=== PATIENT | female | born 1945 | race Caucasian/White ===

== ENCOUNTER → 2023-10-08 07:19 | Outpatient (REF) | payer MEDICARE, SELFPAY | LOC: EMG 07:19 | PROVIDERS: ATTENDING PHYSICIAN Orthopaedic Surgery; FAMILY PHYSICIAN Internal Medicine | DX: Z96.612 Presence of left artificial shoulder joint (principal); G56.12 Other lesions of median nerve, left upper limb; R20.0 Anesthesia of skin | CPT/HCPCS: 95886; 95909 ==

== ENCOUNTER → 2024-09-12 10:40 | Outpatient (REF) | payer MEDICARE, SELFPAY | LOC: WDC 10:40 | PROVIDERS: ATTENDING PHYSICIAN Internal Medicine | DX: N63.10 Unspecified lump in the right breast, unspecified quadrant (principal); N63.20 Unspecified lump in the left breast, unspecified quadrant; N63.13 Unspecified lump in the right breast, lower outer quadrant; N63.24 Unspecified lump in the left breast, lower inner quadrant | CPT/HCPCS: 76642; 77062; 77066 ==

== ENCOUNTER 2024-09-14 06:00 | Day surgery (SDC) | payer MEDICARE, SELFPAY ==
[2024-09-05 13:00] VITALS: BMI 23.3
--- NOTE | 2024-09-05 13:44 | HPS.HSE ---
Family Physician
-
Family Physician: Katie Champion
Chief Complaint
-
Paroxysmal atrial fibrillation.
History of Present Illness
The patient is an 78 year old female presenting today for paroxysmal atrial fibrillation. She goes by Betty, her middle name. Betty reports exertional fatigue and lethargy associated with this diagnosis. She previously underwent a
cardioversion and pulmonary vein isolation at [facility] in 2020. She is on current pharmacological therapy with Amiodarone and Metoprolol Succinate. She reports she has been compliant with Eliquis for oral anticoagulation. She notes that
her current symptoms associated with her arrhythmia greatly interfere with her activities of daily living and overall impact her quality of life. She also hopes to come off Amiodarone one day given its known toxicities with lifelong use. She is
interested in pursuing a recurrent pulmonary vein isolation for further arrhythmia management. She denies complaints today such as chest pain, shortness of breath at rest, palpitations, nausea, vomiting, diarrhea, dizziness, cough, sore throat, or
fever.
Medical History
Past Medical History
Past Medical History: Reports Other
Additional Past Medical History:
1. Paroxysmal atrial fibrillation, status post cardioversion and pulmonary vein isolation 2020; pharmacological therapy with Amiodarone and Metoprolol Succinate, oral anticoagulation with Eliquis.
2. Paroxysmal atrial flutter, improved after cardioversion 2020.
3. Symptomatic bradycardia and sick sinus syndrome, status post Medtronic pacemaker 08/2019.
4. Hypertension.
5. Hyperlipidemia.
6. Coronary artery disease, status post PCI with stent 2007.
7. Bilateral carotid atherosclerosis without significant stenosis.
8. Obstructive sleep apnea, non-compliant with device.
9. Chronic dyspnea on exertion.
10. Mild renal insufficiency per pre-operative labs.
11. GERD.
12. Esophageal dysmotility with spasms and mild dysphagia.
13. Colon polyps.
14. Diverticulosis.
15. Hemorrhoids.
16. Chronic constipation.
17. Peripheral neuropathy.
18. Spinal stenosis.
19. Osteoarthritis, status post right total shoulder arthroplasty, 2018, right total knee arthroplasty, 2021, and left total shoulder arthroplasty 2022.
20. Ambulatory dysfunction with history of falls.
21. Rosacea.
22. Stress incontinence.
23. Lyme disease.
24. Osteopenia.
25. Insomnia.
26. Hearing impairment bilaterally.
27. Mild leukopenia.
28. Chronic thrombocytopenia.
29. Mildly elevated transaminases.
30. Mild hypermagnesemia with prior hypomagnesemia.
31. Remote history of tobacco abuse.
Past Surgical History: Reports Other
Additional Past Surgical History:
1. Pulmonary vein isolation.
2. Cardioversion.
3. PCI with stent.
4. Cardiac cath.
5. Medtronic pacemaker insertion.
6. Right total shoulder arthroplasty.
7. Left total shoulder arthroplasty.
8. Right total knee arthroplasty.
9. Left upper extremity nerve decompression.
10. Breast reduction.
11. Abdominoplasty.
12. Cosmetic surgery.
13. Bilateral cataract extraction.
14. Multiple colonoscopies.
15. Multiple endoscopies.
Social History
Tobacco: Former Smoker (She was an 'infrequent' tobacco user approximately 30 years ago.)
Alcohol: Other (Rare.)
Personal:
Living: Other (She lives in a 2 story home with her . )
Family History
Family History: Not pertinent
Allergies / Home Medications
Allergy/Medication List:
Home medications:
1. Tylenol 650 mg p.o. every 6 hours as needed.
3. Lansoprazole 15 mg p.o. daily.
4. Semaglutide 1.7 mg subcu on Sundays.
5. Lunesta 2-3 mg p.o. at bedtime.
6. Colace 100 mg p.o. daily.
7. Metoprolol Succinate 100 mg p.o. twice a day.
8. Repatha 140 mg subcutaneous every 2 weeks.
9. Ibuprofen 200 mg p.o. daily as needed.
10. Fiber 1 gummy p.o. twice a day.
11. Cyanocobalamin 2500 mcg sublingual weekly.
12. Apixaban 2.5 mg p.o. twice a day.
13. Rosuvastatin calcium 40 mg p.o. at bedtime.
14. Senna 1 tablet p.o. daily as needed.
15. Cholecalciferol 6000 units p.o. daily.
16. Valsartan 160 mg p.o. twice a day.
17. Amiodarone 200 mg p.o. daily.
18. Magnesium oxide 400 mg p.o. every other day.
Allergies: Methotrexate.
Review of Systems
-
A 12 point ROS was completed and negative except as noted: Yes
Physical Exam
Vital Signs
Blood pressure 151/102. Repeat blood pressure 142/100. Heart rate 70. Respirations 18. Pulse ox 99% on room air.
Height 5 feet, 2 inches. Weight 57.7 kg. BMI 23.3.
Physical Exam
General: Well Developed, Well Nourished and No Apparent Distress
HEENT: NormoCephalic, Moist mucous membranes, Atraumatic and PERRLA
Respiratory: Clear
Cardiac: Regular Rhythm and Other (Pacemaker site intact. )
GI: Soft, Non Tender and Non Distended
Musculoskeletal: No Edema
Skin: Warm and Dry
Neuro: AO x 3 and Nonfocal/grossly intact
Laboratory Results
-
DIAGNOSTIC STUDIES as of 09/05/2024: White blood cell count 4.0. Hemoglobin 13.4. Platelet count 94,000. PT 13.9. INR 1.04. Sodium 140. Potassium 4.6. BUN 25. Creatinine 1.0. Glucose 89. Calcium 9.8. Magnesium 2.6. AST 62. ALT 69. Albumin 4.5. Type
and screen O positive.
EKG 09/05/2024: Atrial paced rhythm with prolonged AV conduction. Nonspecific ST and T wave abnormality.
Chest 09/05/2024: Short segment common vestibule for the left superior and inferior pulmonary veins, fairly commonly seen and considered normal variant. No evidence for left atrial thrombus.
Stress echocardiogram 06/04/2020: Normal Stress Echocardiogram with normal hemodynamic response to exercise. Overall, low risk stress test.
Impression/Plan
-
IMPRESSION/PLAN:
1. Paroxysmal atrial fibrillation: The patient is in need of pulmonary vein isolation with Dr. Aaron Martinez on 09/14/2024. The benefits and risks of the procedure have been explained to the patient. The patient understands these risks and
wishes to proceed. She will not be required to undergo a preprocedural transesophageal echocardiogram as she has been compliant with her home oral anticoagulation. She is aware to continue her Eliquis uninterrupted prior to her procedure. She was
advised to hold Amiodarone 2 weeks prior to her ablation. She will not take Wegovy within 1 week of her procedure. She will take no medications the morning of her procedure.
2. Mild hypermagnesemia: Magnesium result discussed with Dr. Martinez pre-operatively. Given her past history of hypomagnesemia, we will keep her on her current magnesium supplement. This result should not delay her upcoming procedure.
[2024-09-05 14:33] LABS: % Basophils 0.3 % (0-2); % Eosinophils 1.8 % (0-6); % Lymphocytes 32.8 % (20.5-51.1); % Monocytes 10.5 % (1.7-9.3); % Neutrophils 54.6 % (42.2-75.2); Absolute Eosinophils 0.1 10^3/uL (0-0.7); Absolute Lymphocytes 1.3 10^3/uL (1.2-3.4); Absolute Monocytes 0.4 10^3/uL (0.1-0.6); Absolute Neutrophils 2.2 10^3/uL (1.4-6.5); Hemoglobin 13.4 g/dL (12.0-16.0); Mean Corp Hgb Conc. 33.5 g/dL (33.0-37.0); Mean Corpuscular Hgb 33.3 pg (27.0-31.0); Mean Corpuscular Volume 99.5 fL (81.0-99.0); Nucleated Red Blood Cells % 0 %; Red Blood Cell Count 4.02 10^6/uL (4.20-5.40); Red Cell Dist. Width 13.3 % (11.5-14.5)
[2024-09-05 14:33] LABS: INR 1.04; PT 13.9 Sec (11.4-14.6)
[2024-09-05 14:56] LABS: Platelet Count 94 10^3/uL (130-400)
[2024-09-05 15:08] LABS: ALT (SGPT) 69 U/L (0-35); AST (SGOT) 62 U/L (14-36); Albumin 4.5 g/dl (3.5-5.0); Alkaline Phosphatase 79 U/L (38-126); Blood Urea Nitrogen 25 mg/dl (7-17); Calcium 9.8 mg/dl (8.4-10.2); Carbon Dioxide 32 mmol/L (22-30); Chloride 100 mmol/L (98-107); Estimated Creatinine Clearance 35 ml/min; Glucose 89 mg/dl (70-99); Magnesium 2.6 mg/dl (1.6-2.3); Potassium 3.6 mmol/L (3.5-5.1); Sodium 140 mmol/L (135-145); Total Bilirubin 0.7 mg/dl (0.2-1.3); Total Protein 6.7 g/dl (6.3-8.2); eGFR 56.95
[2024-09-14] VITALS (28 sets, daily range): BP systolic 122–182; BP diastolic 84–122; BMI 23.7
--- NOTE | 2024-09-14 07:12 | PTCARENOTE ---
Pt's blood pressure is 173/109 on her left arm and 178/112 on right arm. Pt did not take any medications today. Dr Anderson made aware. No treatment ordered at this time. Will continue to monitor.
[2024-09-14 08:47] LABS: ACT-LR - POC 372 Seconds (116-155)
[2024-09-14 09:06] LABS: ACT-LR - POC 305 Seconds (116-155)
--- NOTE | 2024-09-14 11:11 | ITS.CL.ABL ---
[employer]order - Ablation
Ablation
Procedure Report:
ELECTROPHYSIOLOGIC STUDY AND POSSIBLE ABLATION
DATE: September 14, 2024
Primary Care Provider: Dr Katie Champion
INDICATION:
Symptomatic Atrial Fibrillation.
Paroxysmal
HISTORY: See H and P.
Symptomatic AF, poorly controlled with attempted medical therapy.
She had prior ablation for atrial fibrillation at [facility] in 2019 and she has recurred with symptomatic atrial fibrillation despite attempts at medical therapy and presents today for mapping and ablation.
HAS-BLED: 2
Age
Abnormal Liver Function
CHADSVASc: 4
HTN
Age
F Gender
PRESENTING RHYTHM: SR
HISTORY: See H and P.
Symptomatic AF, poorly controlled with attempted medical therapy.
ANTICOAGULATION: Eliquis 2.5 mg twice daily (based on age and weight)
'TIME-OUT': called and confirmed.
SEDATION/ANESTHESIA: provided via the anesthesia department using general anesthesia.
PROCEDURE:
Ultrasound Guidance with real-time visualization of needle insertion and vessel patency performed by wv for femoral venous Vascular Access. Images were taken and saved for the patient's permanent record. Imaging findings typical femoral venous
anatomy. Direct visualization of needle puncture into the femoral vein was observed and recorded.
A decapolar CS catheter was placed within the CS for mapping and pacing.
The intracardiac ultrasound catheter was positioned in the RA for continuous intracardiac ultrasound imaging.
Heparin bolus and infusion to target ACT at 300 -350 seconds was administered. Transseptal puncture was performed. This entailed advancing a sheath with dilator into the superior vena cava and withdrawing both (monitoring intracardiac ultrasound,
fluoroscopy and tip pressure) with the tip oriented toward the atrial septum. The fossa ovalis was engaged (indicated by sudden displacement of the sheath tip as well as tenting of the fossa seen on intracardiac ultrasound).
The FarapSquarespace transseptal system was used. Left atrial catheter position was confirmed by echocardiographic imaging and fluoroscopy followed by RF delivery using the [employer] system resulting in successful LA access with pressure monitoring
demonstrating LA pressure waveforms (LA mean pressure 5 mm Hg). The sheath was advanced over the dilator and positioned in the left atrium.
The Thomas Grid multipolar mapping catheter was initially positioned through the transseptal sheath for high density mapping.
Geometry and voltage mapping was performed using the Thomas multipolar grid catheter. Ensite-X was utilized for three-dimensional electroanatomical mapping.
A 3-D map was created using Ensite-X in Voxel mode. A 3-D reconstructed CT image was compared to the 3-D Navex map to assist in anatomic evaluation, mapping and ablation.
This demonstrates that there is reconnection at all 4 pulmonary veins and fractionated electrograms at the posterior wall of the left atrium in sinus rhythm
The StatusPage catheter and system was used for cardiac ablation. Catheter positioning was guided and confirmed using both I.C.E. and fluoroscopy.
PV isolation approach was used to electrically isolate each PV ostia (LSPV, LIPV, RSPV, RIPV).
Additional energy applications/additional ablation set was required to accomplish wide area circumferential ablation around each of the pulmonary vein sets and additionally ablation to accomplish LA posterior wall ablation.
Remapping with the Thomas multipolar grid catheter found that all PVPs were eliminated at each vein demonstrating entrance block. Also pacing from the multipolar mapping catheter around the the circumference of the ostia was performed at 10 ma and
2.0 msec output to assess for exit block. This demonstrated electrical isolation at each of the pulmonary vein ostia (LSPV, LIPV, RSPV, RIPV). There is also entrance and exit block at the LA posterior wall.
Programmed electrostimulation failed to induce any sustained arrhythmias.
I.C.E. :
Pre-Ablation Post-Ablation
LVEF: 55 % 55 %
WMA: none none
Pericardial effusion: trace post trace post
COMPLICATIONS:
With manipulation of the ablation sheath, RA lead dislodgement occurred.
SUMMARY:
- Mapping and ablation to isolate the PVs
- Additional AF ablation set after PVI.
- 3-D Electroanatomical Mapping
- Intracardiac Ultrasound
- Ultrasound guidance for vascular access
Post ablation, I discussed today's findings and results with the patient's dilia.
RECOMMENDATIONS:
Discussed with her re todays findings including RA lead dislodgement and my recommendation to proceed with revision/repositioning of lead immediately post ablation and he agrees.
Copy to:
Dr Katie Champion
--- NOTE | 2024-09-14 11:12 | ITS.CL.PACE ---
[employer] - Pacemaker Implant
Pacemaker Implant
Procedure Report:
RIGHT ATRIAL PACING LEAD REPOSITIONING
Date of Procedure: September 14 2024
Primary Care Provider: Dr Katie Champion
PROCEDURES:
Revision of dislodged right atrial lead
INDICATION FOR PROCEDURE:
Dislodgment of right atrial pacing lead
The patient was prepped and draped in sterile fashion. Lidocaine with epi was used for local anesthesia. An incision was made along the previous incision and the device and leads were carefully dissected from the pocket. Hemostasis was obtained
with electrocautery. The right atrial lead was from the device header. The sutures securing the suture sleeve were severed. The torquing tool was used to retract the right atrial active-fixation. The lead was easily maneuvered and
repositioned while using a J stylette with its lead tip at the right atrial appendage where active-fixation was applied using a torquing tool. This demonstrated adequate pacing and sensing thresholds. The lead was secured to the prepectoral fascia
using its suture sleeve. The pocket was liberally irrigated with antibiotic solution. Once testing (see below) showed adequate and stable function, the leads were connected to the generator header and the leads and generator were placed within the
pocket. The pocket was closed in the typical fashion.
Tyrex antibiotic pouch was used
EXISTING PPM GENERATOR:
Medtronic [id number], SN: [id number], Left Pectoral
EXISTING RV LEAD:
RV: Medtronic 5076-52, SN: [id number] V, RV apical septum
REVISED/REPOSITIONED RA LEAD:
RA: Medtronic 5076-45, SN: [id number] V, RAA
DEVICE TESTING:
Sensing: RA 4.8 mV, RV 12 mV
Capture: RA 1.25 V @ 0.4ms, RV 1 V @ 0.4ms
Ohms: RA 450, RV 475
FINAL PROGRAMMING
Emilio Pacing: AAIR <=> DDDR 70-130 ppm
COMPLICATIONS:
None
CONCLUSIONS:
Revision/repositioning of dislodged right atrial pacing lead
RECOMMENDATIONS:
1. In-Office wound check in 7-10 days.
Copy to: Dr Katie Champion
--- NOTE | 2024-09-14 11:20 | PTCARENOTE ---
Pt arrived to parking lot laborer recovery room post PVI procedure c/o having to urinate. Purewick cather placed upon arrival. Pt states she feels uncomfortable and is unable to urinate. Rufina Da Silva POINTING MACHINE OPERATOR made aware and ordered bladder scan. Pt bladder scanned for
>939. Katie Da Silva POINTING MACHINE OPERATOR at pt bedside. While holding pressure on pt's right groin, pt began bearing down and began urinating clear yellow urine via purewick catheter. Katie REGALADO at pt bedside. Pt states she feels much better. Will continue to
monitor.
[2024-09-14] MEDS: DIOVAN 160 MG PO (11:46)
--- NOTE | 2024-09-14 11:46 | PTCARENOTE ---
Valsartan 160mg PO was ordered while pt was in PVI procedure. Pt given valsartan once out in recovery room as ordered per Katie Da Silva BELLMAN DRIVER due to pt's blood pressure remains elevated. Will continue to monitor.
[2024-09-14] MEDS: ANESTHETIC LOZENGE 1 LOZENGE PO (11:50)
[2024-09-14] MEDS: APRESOLINE 5 MG IV (13:25)
--- NOTE | 2024-09-14 14:23 | PTCARENOTE ---
Attempted to walk pt to bathroom. Pt sat on side of bed for several minutes. Pt then stood up and said she felt dizzy. Pt sat back down on side of bed. Pt again attempted to stand but states she still felt dizzy. Pt laid back in stretcher and
reconnected to heart monitor and blood pressue. Pt's heart rate is 71 and 100% A paced. BP 141/94. Will attempt again shortly. Pt's at pt bedside. Will continue to monitor.
[2024-09-14] MEDS: ANCEF 5 IV (15:48)
--- NOTE | 2024-09-14 16:13 | W.PN.UPDATE ---
Update Note
Progress Note Update
78 yo WF s/p PVI c/b RA lead dislodgement and revision (same day). She denies cp, sob, madi diet, voiding amb w/o dizziness, EKG Apaced, R fem site c/d/i, L CW site with pressure dressing and immobilizer intact. She will resume Eliquis tonight and
monitor pacer site. She will stop Amiodarone, continue metoprolol. She will have incision check in 1 week. She is for d/c home after 4pm after iv abx.
== END 2024-09-14 16:15 | disposition home or self-care (01) ==
LOC: CATH 06:00
PROVIDERS: ATTENDING PHYSICIAN Internal Medicine Cardiovascular Disease; FAMILY PHYSICIAN Internal Medicine
DX: I48.0 Paroxysmal atrial fibrillation (principal); I10 Essential (primary) hypertension; T82.120A Displacement of cardiac electrode, initial encounter; Y83.1 Surgical operation with implant of artificial internal device as the cause of abnormal reaction of the patient, or of later complication, without mention of misadventure at the time of the procedure; E78.5 Hyperlipidemia, unspecified; I25.10 Atherosclerotic heart disease of native coronary artery without angina pectoris; Z95.5 Presence of coronary angioplasty implant and graft; I65.23 Occlusion and stenosis of bilateral carotid arteries; G47.33 Obstructive sleep apnea (adult) (pediatric); R06.09 Other forms of dyspnea; N28.9 Disorder of kidney and ureter, unspecified; Z86.0100 Personal history of colon polyps, unspecified; K21.9 Gastro-esophageal reflux disease without esophagitis; K57.90 Diverticulosis of intestine, part unspecified, without perforation or abscess without bleeding; Z87.19 Personal history of other diseases of the digestive system; K59.09 Other constipation; G62.9 Polyneuropathy, unspecified; M48.00 Spinal stenosis, site unspecified; M19.90 Unspecified osteoarthritis, unspecified site; Z96.612 Presence of left artificial shoulder joint; Z96.611 Presence of right artificial shoulder joint; Z96.653 Presence of artificial knee joint, bilateral; L71.9 Rosacea, unspecified; N39.3 Stress incontinence (female) (male); A69.20 Lyme disease, unspecified; M85.80 Other specified disorders of bone density and structure, unspecified site; G47.00 Insomnia, unspecified; H91.93 Unspecified hearing loss, bilateral; D72.819 Decreased white blood cell count, unspecified; D69.6 Thrombocytopenia, unspecified; R74.01 Elevation of levels of liver transaminase levels; E83.41 Hypermagnesemia; Z87.891 Personal history of nicotine dependence; Z79.899 Other long term (current) drug therapy; Z79.1 Long term (current) use of non-steroidal anti-inflammatories (NSAID); Z79.01 Long term (current) use of anticoagulants; Z95.0 Presence of cardiac pacemaker; Z98.890 Other specified postprocedural states
CPT/HCPCS: 33215; C1759; C1892; C1730; C1894; C1732; 36415; 75572; 76937; 80053; 83735; 85025; 85347; 85610; 86850; 86900; 86901; 93005; 93656; 93657; C1733; C1766; Q9967